=== PATIENT | male | born 2005 ===

== ENCOUNTER 2024-06-10 12:22 | Emergency (ER) | payer MEDICAID, SELFPAY ==
--- NOTE | ~2024-06-10 | XR_ITS ---
EXAMINATION: XR THUMB, LEFT CLINICAL INFORMATION: thumb laceration COMPARISON: None available. TECHNIQUE: PA, oblique and lateral views of the left thumb. FINDINGS: No acute cortical disruption or malalignment. No lytic or blastic lesions. No subcutaneous emphysema. No metallic or radiopaque foreign body. The PA view of the left hand demonstrates intact phalanges of the digits intact metacarpals and intact carpal bones as well as intact distal radius and ulna. XR/XR finger LT min 2V IMPRESSION: No acute fracture or dislocation. No gross foreign body. Electronically signed by: Giovanni Pagan MD 06/10/2024 01:09 PM [facility]
[2024-06-10 12:42] VITALS: BP 119/37; PULSE 74; RESP 16; TEMP 36.6; O2SAT 99; BMI 23.3
--- NOTE | 2024-06-10 12:43 | ED.SKABFB ---
HPI - Skin/Abscess/Foreign Bdy General Chief complaint: Wound/Laceration Stated complaint: L thumb lac Related Data Allergies Allergy/AdvReac Type Severity Reaction Status Date / Time No Known Allergies Allergy Verified 06/10/24 12:43 [facility] Social History Social History Advance Directives: No Advance Directives Information Provided: No Physical Exam Vital Signs: Vital Signs: Last Vital Signs Temp 97.9 F 06/10/24 12:42 Pulse 74 06/10/24 12:42 Resp 16 06/10/24 12:42 BP 119/37 L 06/10/24 12:42 Pulse Ox 99 06/10/24 12:42 O2 Del Method Room Air 06/10/24 12:42 BMI result Body Mass Index 23.3 Course Course Course Narrative: This is an RME: Additional HPI, ROS, PE not included below will be deferred to primary provider. RME assessment and note performed by: Angela Farias PA-C This is a [id number]-male who presents to the ER with complaints of left thumb laceration since today. He accidentally lacerated his left thumb on a chisel. Thumb with 2 cm partial-thickness laceration requiring suture repair. Urged patient to stay as he needs to have sutures placed. Tetanus is up-to-date. Plan: X-ray, wound repair Reevaluation(s) Reevaluation #1: Patient left without completing treatment. Discharge Plan Discharge Clinical Impression: Laceration Patient Disposition: Left W/O Completing Treatment Discharge Date/Time: 06/10/24 15:19
== END 2024-06-10 15:19 | disposition left against medical advice (07) ==
LOC: HO.ED 15:19
PROVIDERS: Emergency Provider Student in an Organized Health Care Education/Training Program
DX: S61.012A Laceration without foreign body of left thumb without damage to nail, initial encounter (principal); W26.9XXA Contact with unspecified sharp object(s), initial encounter; Y93.89 Activity, other specified; Y92.89 Other specified places as the place of occurrence of the external cause; Y99.8 Other external cause status
CPT/HCPCS: 12001; 73140; 99281; 99283; 99284

== ENCOUNTER → 2024-06-10 12:43 | Outpatient (BNV) | payer MEDICAID, SELFPAY | PROVIDERS: Visit Provider Radiology Diagnostic Radiology | DX: S61.012A Laceration without foreign body of left thumb without damage to nail, initial encounter (principal) | CPT/HCPCS: 73140 ==